=== PATIENT | female | born 1980 | race Caucasian/White ===

== ENCOUNTER 2020-03-29 16:02 | Observation (INO) | payer OTHER ==
[~2020-03-29] VITALS: Ht 160 cm; Wt 77.9 kg
--- OUTSIDE RECORDS SUMMARY | ~2020-03-29 | XMS | Encounter Summary ---
Demographics + + + | Address | [address] [place] [address] Rd | | | [place] [address] | + + + | Home Phone | | + + + | Preferred Language | Unknown | + + + | Marital Status | Unknown | + + + | Nondenominational Affiliation | Unknown | + + + | Race | Unknown | + + + | Ethnic Group | Unknown | + + + Author + + + | Author | [facility] | | | and [place] | + + + | Organization | [facility] | | | and [place] | + + + | Address | Unknown | + + + | Phone | Unavailable | + + + Support + + + + + | Name | Relationship | Address | Phone | + + + + + | Arthur Rosenberg | ECON | [address] | | | | | [place] | | | | | [address] | | + + + + + | Tiffanie Alexandra | ECON | Unknown | | + + + + + | Lulu Poole | ECON | Unknown | | + + + + + Care Team Providers + +------+ + | Care High School Social Studies Teacher Name | Role | Phone | + +------+ + | Shantal Fairchild NP | PCP | | + +------+ + Reason for Visit +--------+ + | Reason | Comments | +--------+ + | Other | Hep C | +--------+ + Evaluate & Treat (Routine) +--------+--------+ + + + + | Status | Reason | Specialty | Diagnoses / | Referred By | Referred To | | | | | Procedures | Contact | Contact | +--------+--------+ + + + + | Closed | | Gastroenterol | Diagnoses | Gurinder, | Krysta, | | | | ogy | Chronic | Shantal Dunne, | Marychuy, | | | | | hepatitis C | 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 [address] | | | | | without | [address] | [address] | | | | | mention of | [address] | [address] | | | | | hepatic coma | JARAD, | [place], | | | | | Procedures | [place] [address] | [place] [address] | | | | | Office | Phone: | Phone: | | | | | Visit | [phone] | [phone] | | | | | | Fax: | Fax: | | | | | | [phone] | [phone] | +--------+--------+ + + + + Encounter Details +--------+---------+ + + + | Date | Type | Department | Care Team | Description | +--------+---------+ + + + | 12/30/ | Office | [facility] | [facility], | Hepatitis C antibody | | 2014 | Visit | GASTROENTEROLOGY | JENNIFER Perrin [address] | test positive | | | | [address] | [address] | (Primary Dx) | | | | [address] [place], [place] | [place], [place] | | | | | [address] | [address] | | | | | [phone] | | | +--------+---------+ + + + Social History + +-------+ [...] + + documented as of this encounter Last Filed Vital Signs + + + [...] + + + documented in this encounter Progress Notes Marychuy Chaparro ARNP - 12/30/2014 11:04 AM PDTFormatting of this note might be differe nt from the original. Bethanie Rosenberg is a 34 y.o. female referred by Shantal Fairchild for evaluation and tr eatment of HCV antibody positive History of present illness: Patient states she has a history IV drug use, home tattoos, or incarceration. Has not done any illegal drug use for over 10 years. Complains of headaches and body aches intermittently. Denies ascites, jaundice, hematemesis, peripheral edema, sleep changes, or confusion. No Known Allergies Past Medical History Diagnosis Date Obesity Tobacco abuse Past Surgical History Procedure Laterality Date Cyst removal Family History Problem Relation Age of Onset Hepatitis C Mother treated, cleared of hep c History Social History Marital Status: Unknown Spouse Name: N/A Number of Children: N/A Years of Education: N/A Occupational History Not on file. Social History Main Topics Smoking status: Current Every Day Smoker Smokeless tobacco: Never Used Alcohol Use: Yes Drug Use: No Comment: quit in 2004 Sexual Activity: Not on file Other Topics Concern Not on file Social History Narrative Review of systems: Constitutional:Denies any fevers, chills, or unintentional weight loss. Eyes:Denies using glaucoma eye drops. Denies dry, burning, painful eyes Respiratory:Denies shortness of breath, cough or wheezing. Gastrointestinal: Complains of intermittent diarrhea and heartburn. Denies constipation, b loody or black stools, hematemesis, nausea or vomiting, hemorrhoids, abdominal pain, or dysp hagia. Skin: Denies rashes Neurological: Complains of muscle weakness and frequent bothersome headaches. Denies memor y difficulties, numbness or tingling, paralysis, or seizures. ENT:Denies hearing loss, hearing aids, hearing ringing or buzzing in ears, constantly runny nose, nasal obstruction, hayfever, dentures, or hoarseness. Cardiovascular:Denies chest pain, palpitations, or swelling to legs : Complains of painful urination, nocturnal urination, and bloody urine. Denies urine in continence or impotence. Musculoskeletal: Complains of painful back and joints. Denies swollen joints. Psychiatric:Denies depression and anxiety Endocrine:Denies enlarged thyroid Heme/lymph: Denies anemia or enlarged lymph glands. Physical exam: General: Alert and oriented, NAD Eyes: Sclera clear Mouth: Mucous membranes moist Abdomen: Soft, non-tender, non-distended, bowel tones positive x 4 quadrants, negative Murp hy's sign, negative rebound tenderness, no hepatosplenomegaly. Extremities: No clubbing or edema Skin: Warm, dry, intact. No rashes noted Neuro: Cranial nerves 2-12 grossly intact. Psych: Appropriate mood and affect. Abstract on 12/29/2014 Component Date Value Ref Range Status Signal/Cutoff 11/09/2014 20.9 Final HCV RNA, Qual PCR 11/09/2014 Not Detected Final HCV Ab 11/09/2014 Positive Final HCV Ab 10/15/2014 Positive Final Signal/Cutoff 10/15/2014 21.4 Final ANION GAP 10/13/2014 10 Final BUN/Creatinine Ratio 10/13/2014 15.9 Final Globulin 10/13/2014 5.0 Final Albumin/Globulin Ratio 10/13/2014 2.5 Final MYOGLOBIN 10/13/2014 38 169 ng/mL Final CKMB, Total, External 10/13/2014 Negative Final Interp Relative Index 10/13/2014 1.5 Final MCH 10/13/2014 26.0* 27.0 - 33.0 pg Final MCHC 10/13/2014 31.0 Final BASOPHILS % 10/13/2014 0.6 Final Creatinine, External 10/13/2014 0.82 0.6 - 1.35 Final eGFR, External 10/13/2014 >60 60 - 38160 Final WBC, External 10/13/2014 9.0 4.5 - 11 Final HGB, External 10/13/2014 13.2 12 - 16 Final HCT, External 10/13/2014 42.1 35 - 45 Final PLT, External 10/13/2014 261 140 - 440 Final Neutrophils %, External 10/13/2014 54.9 39 - 80 Final Lymphocytes %, External 10/13/2014 38.1 24 - 44 Final Monocytes %, External 10/13/2014 5.1 0 - 12 Final Eosinophils %, External 10/13/2014 1.3 0 - 6 Final RBC, External 10/13/2014 5.08 3.8 - 5.1 Final MCV, External 10/13/2014 85 81 - 99 Final RDW, External 10/13/2014 11.8 10.5 - 15 Final UA Blood, External 10/13/2014 10* 0 Final UA Glucose, External 10/13/2014 Normal Final UA Ketones, External 10/13/2014 Negative Final UA Ph, External 10/13/2014 6 5 - 9 Final UA Proteins, External 10/13/2014 Negative Final UA RBC, External 10/13/2014 0 0 - 4 Final UA Specific [place], External 10/13/2014 1.001* 1.005 - 1.03 Final UA Leukocyte Esterase, External 10/13/2014 Negative Final Sodium, External 10/13/2014 136 132 - 143 Final Potassium, External 10/13/2014 3.6 3.6 - 5.1 Final Chloride, External 10/13/2014 103 95 - 112 Final Carbon Dioxide, External 10/13/2014 27 19 - 31 Final Calcium, External 10/13/2014 9.6 8.4 - 10.2 Final Protein, Total, External 10/13/2014 7.5 6 - 8 Final Albumin, External 10/13/2014 5.0 3.5 - 5 Final Bilirubin, Total, External 10/13/2014 0.3 0 - 1.2 Final ALP, External 10/13/2014 57 30 - 128 Final AST, External 10/13/2014 20 13 - 39 Final ALT, External 10/13/2014 32 7 - 52 Final Troponin T, External 10/13/2014 <0.010 0.01 Final CK, Total, External 10/13/2014 3.36* 0 - 2.88 Final Glucose, External 10/13/2014 87 70 - 100 Final BUN, External 10/13/2014 13 6 - 23 Final Assessment: 1. Hepatitis C antibody test positive Plan: Hepatitis C antibody positive: Approximately 25-30% of the individuals infected with hepati tis C can spontaneously cleared the virus on their own. It appears this is the case for Newton Rosenberg. Discussed that she does not have hepatitis C infection. There is evidenc e of exposure to hepatitis C that did not become a chronic infection. Vaccination: If it has not been done, recommend patient is vaccinated for both Hepatitis A and Hepatitis B. Transmission: Patient cannot transmit the hepatitis C virus. Substance use/abuse: She is to continue to avoid illicit drug use. She can become reinfect ed We will repeat hepatitis C quantitative evaluation in 1 year to ensure this eradication. Patient is to call with any question or concerns. Any fevers, chills, chest pain, SOB or o ther serious symptoms patient is to call the office or go to ER Cc: Shantal Fairchild This note was dictated using voice recognition software. Please contact me if there are an y questions regarding its content. documented in t his encounter Plan of Treatment Not on filedocumented as of this encounter Visit Diagnoses + + | Diagnosis | + + | Hepatitis C antibody test positive - Primary Other and unspecified nonspecific | | immunological findings | + + documented in this encounter
--- OUTSIDE RECORDS SUMMARY | ~2020-03-29 | XMS | Clinical Summary ---
Demographics + + + | Address | [address] [place] [address] Rd | | | [place] [address] | + + + | Home Phone | | + + + | Preferred Language | Unknown | + + + | Marital Status | Unknown | + + + | Caodaism Affiliation | Unknown | + + + | Race | Unknown | + + + | Ethnic Group | Unknown | + + + Author + + + | Author | [facility] | | | and [place] | + + + | Organization | [facility] | | | and [place] | + + + | Address | Unknown | + + + | Phone | Unavailable | + + + Support + + + + + | Name | Relationship | Address | Phone | + + + + + | Arthur Rosenberg | ECON | [address] | | | | | [place] | | | | | [address] | | + + + + + | Tiffanie Alexandra | ECON | Unknown | | + + + + + | Lulu Poole | ECON | Unknown | | + + + + + Care Team Providers + +------+ + | Care Fruit Harvester Machine Operator Name | Role | Phone | + [...] | [employer] | MODA | [id number] | 12/09/19 | [phone] | | Medica | | MEDICAID HMO [...] Person | Self | [birth year] | | [address] | | | al/Fam | | 1980 | [phone] | [place] [address] | | | lakeisha | | | 8 (Home) | | + +--------+ +--------+ + + Advance Directives + + + + + | Type | Date Recorded | Patient | Explanation | | | | Energy Consultant | | + + + + + | Power of | | | | | Trailer Technician | | | | + + + + + | Advance | | | | | Directive | | | | + + + + +
--- OUTSIDE RECORDS SUMMARY | ~2020-03-29 | XMS | Encounter Summary ---
Demographics + + + | Address | [address] [place] [address] Rd | | | [place] [address] | + + + | Home Phone | | + + + | Preferred Language | Unknown | + + + | Marital Status | Unknown | + + + | Uatsdin Affiliation | Unknown | + + + | Race | Unknown | + + + | Ethnic Group | Unknown | + + + Author + + + | Author | [facility] | | | and [place] | + + + | Organization | [facility] | | | and [place] | + + + | Address | Unknown | + + + | Phone | Unavailable | + + + Support + + + + + | Name | Relationship | Address | Phone | + + + + + | Arthur Rosenberg | ECON | [address] | | | | | [place] | | | | | [address] | | + + + + + | Tiffanie Alexandra | ECON | Unknown | | + + + + + | Lulu Poole | ECON | Unknown | | + + + + + Care Team Providers + +------+ + | Care Steward/Stewardess Bath Name | Role | Phone | + +------+ + | Shantal Fairchild NP | PCP | | + +------+ + Encounter Details +--------+ + + + + | Date | Type | Department | Care Team | Description | +--------+ + + + + | 12/29/ | Abstract | [facility] [place] | [facility], | | | 2014 | | GASTROENTEROLOGY | [address] | | | | | [address] | [address] | | | | | [address] [place], [place] | [place], [place] | | | | | [address] | [address] | | | | | [phone] | | | +--------+ + + + [...] this encounter Results Hepatitis A, B, C Panel, Reflex (11/09/2014 4:38 PM PDT) + + + [...] | + +---------+ + + External Lab: Ck, Total (10/13/2014 5:00 PM PST) + + [...] - 1.03 | EXTERNAL | | | [place], | | | LAB | | | [...] MYOGLOBIN | 38 | 169 ng/mL | [facility] | | | | | [...] + | [facility] | [address] | [place], [place] | | | [facility] | | [address] | | | - LABORATORY [...] | ine Ratio | | | [facility] | | | | | | [...] + | [facility]. | [address] | [place] | | | [facility] | | [address] | | | - LABORATORY | | | | + + + + + documented in this encounter Visit Diagnoses Not on filedocumented in this encounter"
--- OUTSIDE RECORDS SUMMARY | ~2020-03-29 | XMS | Encounter Summary ---
Demographics + + + | Address | [address] [place] [address] Rd | | | [place] [address] | + + + | Home Phone | | + + + | Preferred Language | Unknown | + + + | Marital Status | Unknown | + + + | Latter-Day Affiliation | Unknown | + + + | Race | Unknown | + + + | Ethnic Group | Unknown | + + + Author + + + | Author | [facility] | | | and [place] | + + + | Organization | [facility] | | | and [place] | + + + | Address | Unknown | + + + | Phone | Unavailable | + + + Support + + + + + | Name | Relationship | Address | Phone | + + + + + | Arthur Rosenberg | ECON | [address] | | | | | [place] | | | | | [address] | | + + + + + | Tiffanie Alexandra | ECON | Unknown | | + + + + + | Lulu Poole | ECON | Unknown | | + + + + + Care Team Providers + +------+ + | Care Client Relations Specialist Name | Role | Phone | + [...] | | | | hepatitis C | MECHANICAL SYSTEMS ENGINEER [address] | JEWEL CORNER BRUSHING MACHINE OPERATOR [address] | | | | | without | [address] | [address] | | | | | mention of | [address] | [address] | | | | | hepatic coma | JARAD, | [place], | | | | | Procedures | [place] [address] | [place] [address] | | | | | Office | Phone: | Phone: | | | | | Visit | [phone] | [phone] | | | | | | Fax: | Fax: | | | | | | [phone] | [phone] | +--------+--------+ + + + + Encounter Details +--------+---------+ + + + | Date | Type | Department | Care Team | Description | +--------+---------+ + + + | 12/30/ | Office | [facility] | [facility], | Hepatitis C antibody | | 2014 | Visit | GASTROENTEROLOGY | [address] | test positive | | | | [address] | [address] | (Primary Dx) | | | | [address] [place], [place] | [place], [place] | | | | | [address] | [address] | | | | | [phone] | | | +--------+---------+ + + + [...] Final eGFR, External 10/13/2014 >60 60 - [address] Final WBC, External 10/13/2014 9.0 4.5 - [...] 0 0 - 4 Final UA Specific [place], External 10/13/2014 1.001* 1.005 - 1.03 Final [...]
--- OUTSIDE RECORDS SUMMARY | ~2020-03-29 | XMS | Clinical Summary ---
Demographics + + + | Address | [address] [place] [address] Rd | | | [place] [address] | + + + | Home Phone | | + + + | Preferred Language | Unknown | + + + | Marital Status | Unknown | + + + | Spiritism Affiliation | Unknown | + + + | Race | Unknown | + + + | Ethnic Group | Unknown | + + + Author + + + | Author | [facility] | | | and [place] | + + + | Organization | [facility] | | | and [place] | + + + | Address | Unknown | + + + | Phone | Unavailable | + + + Support + + + + + | Name | Relationship | Address | Phone | + + + + + | Arthur Rosenberg | ECON | [address] | | | | | [place] | | | | | [address] | | + + + + + | Tiffanie Alexandra | ECON | Unknown | | + + + + + | Lulu Poole | ECON | Unknown | | + + + + + Care Team Providers + +------+ + | Care Fowl Blood Tester Name | Role | Phone | + [...] | [employer] | MODA | [id number] | 12/09/19 | [phone] | | Medica | | MEDICAID HMO [...] Person | Self | [birth year] | | [address] | | | al/Fam | | 1980 | [phone] | [place] [address] | | | lakeisha | | | 8 (Home) | | + +--------+ +--------+ + + Advance Directives + + + + + | Type | Date Recorded | Patient | Explanation | | | | Junior Staff Accountant | | + + + + + | Power of | | | | | Rolls Baker | | | | + + + + + | Advance | | | | | Directive | | | | + + + + +
--- OUTSIDE RECORDS SUMMARY | ~2020-03-29 | XMS | Encounter Summary ---
Demographics + + + | Address | [address] [place] [address] Rd | | | [place] [address] | + + + | Home Phone | | + + + | Preferred Language | Unknown | + + + | Marital Status | Unknown | + + + | Jewish Affiliation | Unknown | + + + | Race | Unknown | + + + | Ethnic Group | Unknown | + + + Author + + + | Author | [facility] | | | and [place] | + + + | Organization | [facility] | | | and [place] | + + + | Address | Unknown | + + + | Phone | Unavailable | + + + Support + + + + + | Name | Relationship | Address | Phone | + + + + + | Arthur Rosenberg | ECON | [address] | | | | | [place] | | | | | [address] | | + + + + + | Tiffanie Alexandra | ECON | Unknown | | + + + + + | Lulu Poole | ECON | Unknown | | + + + + + Care Team Providers + +------+ + | Care Domestic Cleaner Name | Role | Phone | + +------+ + | Shantal Fairchild NP | PCP | | + +------+ + Encounter Details +--------+ + + + + | Date | Type | Department | Care Team | Description | +--------+ + + + + | 12/29/ | Abstract | [facility] [place] | [facility], | | | 2014 | | GASTROENTEROLOGY | [address] | | | | | [address] | [address] | | | | | [address] [place], [place] | [place], [place] | | | | | [address] | [address] | | | | | [phone] | | | +--------+ + + + [...] - 1.03 | EXTERNAL | | | [place], | | | LAB | | | [...] + | [facility] | [address] | [place], [place] | | | [facility] | | [id number] | | | - LABORATORY | [...] [address] | [place] | | | [facility] | | [id number] | | | - LABORATORY | | | | + + + + + documented in this encounter Visit Diagnoses Not on filedocumented in this encounter"
[~2020-03-29 16:02] MED LIST: MIDOL CAPLET1 EAC1 PO; NORCO 5-325 TA1 EACH PO; TRAZODONE HCL100 MG PO
--- NOTE | 2020-04-01 21:09 | EKG ---
[facility] [address] [facility] [place], [place] [address] Signed Sinus tachycardia Cannot rule out Inferior infarct , age undetermined Abnormal ECG No previous ECGs available Confirmed by MAURIZIO RYDER DO ([id number]) on 04/01/2020 9:09:27 PM Electronically Signed By: MAURIZIO RYDER DO 04/01/20 2109 PATIENT NAME: LARISSA ENGLAND ELISA Electrocardiogram DATE OF : 84 PHYSICIAN: MAURIZIO RYDER DO REPORT #: [id number] REPORT IS CONFIDENTIAL AND NOT TO BE RELEASED WITHOUT AUTHORIZATION
== END 2020-03-30 06:25 | disposition left against medical advice (07) ==
LOC: ED 16:02 → CCU 16:03
PROVIDERS: ADMIT Internal Medicine
DX: F15.10 Other stimulant abuse, uncomplicated (principal); G92 Toxic encephalopathy; M62.82 Rhabdomyolysis; E87.2 Acidosis; R74.0 Nonspecific elevation of levels of transaminase and lactic acid dehydrogenase [LDH]
CPT/HCPCS: 36415; 51702; 70450; 80053; 80176; 81001; 82550; 83735; 84443; 84703; 85025; 93005; 93010; 96361; 96372; 99285-25; C9803; G0378; G0480; J1200; J1650; J1790; J2060; J7030; J7121; U0002

== ENCOUNTER 2020-04-18 18:11 | Emergency (ER) | payer SELFPAY ==
[~2020-04-18] VITALS: Ht 160 cm; Wt 77.6 kg
--- OUTSIDE RECORDS SUMMARY | 2020-04-18 18:14 | XMS ---
PreManage Notification: LARISSA ENGLAND Security Director Of Architecture Events No recent Security Events currently on file CRITERIA MET - [facility] - 2 Visits in 30 Days CARE PROVIDERS There are no care providers on record at this time. Kristine has no Care Guidelines for this patient. Kathia VISIT COUNT (12 MO.) 2 [facility] T[facility] 2 NOTE: Visits indicate total known visits. ED/C VISIT TRACKING (12 MO.) [facility]18[facility]2020 [facility] [place] [facility] COMPLAINT: - MED CLEARANCE 03/29/2020 16:02 [facility] [place] TYPE: Emergency COMPLAINT: - ALTERED LOC INPATIENT VISIT TRACKING (12 MO.) 03/29/2020 16:03 [facility] [place] TYPE: Observation COMPLAINT: - TOXIC ENCEPHALOPATHY DIAGNOSES: - Rhabdomyolysis - Other stimulant abuse, uncomplicated - Altered mental status, unspecified - Nonspecific elevation of levels of transaminase and lactic ac - Toxic encephalopathy - Acidosis [email or web address]
== END 2020-04-18 19:14 | disposition home or self-care (01) ==
LOC: ED 18:11
DX: F15.10 Other stimulant abuse, uncomplicated (principal); F17.200 Nicotine dependence, unspecified, uncomplicated
CPT/HCPCS: 99283

== ENCOUNTER 2020-06-06 16:19 | Emergency (ER) | payer SELFPAY ==
[~2020-06-06] VITALS: Ht 160 cm; Wt 77.6 kg
--- OUTSIDE RECORDS SUMMARY | ~2020-06-06 | XMS | Clinical Summary ---
Demographics + + + | Address | [address] [place] [address] Rd | | | [place] [address] | + + + | Home Phone | | + + + | Preferred Language | Unknown | + + + | Marital Status | Unknown | + + + | Taoist Affiliation | Unknown | + + + | Race | White | + + + | Ethnic Group | Not or | + + + Author + + + | Author | [facility] | | | and [place] | + + + | Organization | [facility] | | | and [place] | + + + | Address | Unknown | + + + | Phone | Unavailable | + + + Support + + + + + | Name | Relationship | Address | Phone | + + + + + | Arthur Rosenberg | ECON | [address] | | | | | [place] | | | | | [address] | | + + + + + | Tiffanie Alexandra | ECON | Unknown | | + + + + + | Lulu Poole | ECON | Unknown | | + + + + + Care Team Providers + +------+ + | Care Insulation Inspector Name | Role | Phone | + [...] | [employer] | MODA | [id number] | 12/09/19 | [phone] | | Medica | | MEDICAID HMO [...] Person | Self | [birth year] | | [address] | | | al/Fam | | 1980 | [phone] | [place] [address] | | | lakeisha | | | 8 (Home) | | + +--------+ +--------+ + + Advance Directives + + + + + | Type | Date Recorded | Patient | Explanation | | | | Commercial Plumber | | + + + + + | Power of | | | | | Packing Floor Worker | | | | + + + + + | Advance | | | | | Directive | | | | + + + + +
--- OUTSIDE RECORDS SUMMARY | ~2020-06-06 | XMS | Encounter Summary ---
Demographics + + + | Address | [address] [place] [address] Rd | | | [place] [address] | + + + | Home Phone | | + + + | Preferred Language | Unknown | + + + | Marital Status | Unknown | + + + | Mormon Affiliation | Unknown | + + + | Race | White | + + + | Ethnic Group | Not or | + + + Author + + + | Author | [facility] | | | and [place] | + + + | Organization | [facility] | | | and [place] | + + + | Address | Unknown | + + + | Phone | Unavailable | + + + Support + + + + + | Name | Relationship | Address | Phone | + + + + + | Arthur Rosenberg | ECON | [address] | | | | | [place] | | | | | [address] | | + + + + + | Tiffanie Alexandra | ECON | Unknown | | + + + + + | Lulu Poole | ECON | Unknown | | + + + + + Care Team Providers + +------+ + | Care Occupational Therapy Assistant Name | Role | Phone | + [...] | | | | hepatitis C | ROLLER PRINTER [address] | ALIGNER BARREL AND RECEIVER [address] | | | | | without | | [address] | | | | | mention of | [address] | [address] | | | | | hepatic coma | JARAD, | [place], | | | | | Procedures | [place] [address] | [place] [address] | | | | | Office | Phone: | Phone: | | | | | Visit | [phone] | [phone] | | | | | | Fax: | Fax: | | | | | | [phone] | [phone] | +--------+--------+ + + + + Encounter Details +--------+---------+ + + + | Date | Type | Department | Care Team | Description | +--------+---------+ + + + | 12/30/ | Office | [facility] | [facility] | Hepatitis C antibody | | 2015 | Visit | GASTROENTEROLOGY | [address]ENNIF[address]errin [address] | test positive | | | | [address] [place] | [address] | (Primary Dx) | | | | [address] [place] | [place] | | | | | [address] | [id number] | | | | | [phone] | | | +--------+---------+ + + + [...] Final eGFR, External 10/13/2014 >60 60 - [address] Final WBC, External 10/13/2014 9.0 4.5 - [...] 0 0 - 4 Final UA Specific [place], External 10/13/2014 1.001* 1.005 - 1.03 Final [...]
--- OUTSIDE RECORDS SUMMARY | ~2020-06-06 | XMS | Encounter Summary ---
Demographics + + + | Address | [address] [place] [address] Rd | | | [place] [address] | + + + | Home Phone | | + + + | Preferred Language | Unknown | + + + | Marital Status | Unknown | + + + | Oriental Orthodox Affiliation | Unknown | + + + | Race | White | + + + | Ethnic Group | Not or | + + + Author + + + | Author | [facility] | | | and [place] | + + + | Organization | [facility] | | | and [place] | + + + | Address | Unknown | + + + | Phone | Unavailable | + + + Support + + + + + | Name | Relationship | Address | Phone | + + + + + | Arthur Rosenberg | ECON | [address] | | | | | [place] | | | | | [address] | | + + + + + | Tiffanie Ibrahima | ECON | Unknown | | + + + + + | Lulu Poole | ECON | Unknown | | + + + + + Care Team Providers + +------+ + | Care Trolley Car Mechanic Name | Role | Phone | + +------+ + | Shantal Fairchild NP | PCP | | + +------+ + Encounter Details +--------+ + + + + | Date | Type | Department | Care Team | Description | +--------+ + + + + | 12/29/ | Abstract | [facility] | [facility], | | | 2014 | | GASTROENTEROLOGY | JENNIFER Perrin [address] | | | | | [address] [place] | [address] | | | | | [address] | [place] | | | | | [phone] | [id number] | | | | | [phone] | | | +--------+ + + + [...] - 1.03 | EXTERNAL | | | [place], | | | LAB | | | [...] + | [facility] | [address] | [place] | | | [facility] | | [address], [facility] | | | - LABORATORY | [...] [facility]. | [address] | [place], [place] | | | [facility] | | [address] | | | - LABORATORY | | | | + + + + + documented in this encounter Visit Diagnoses Not on filedocumented in this encounter"
[2020-06-06] MEDS ORDERED: ESCITALOPRAM OX10 MG PO (16:33)
[2020-06-06] MEDS ORDERED: HYDROXYZINE HCL25 MG PO (16:33)
--- NOTE | 2020-06-06 21:18 | EKG ---
[facility] [address] [facility] [place], [place] [address] Signed Sinus tachycardia Cannot rule out Inferior infarct (cited on or before 29-MAR-2020) Abnormal ECG When compared with ECG of 29-MAR-2020 16:22, No significant change was found Confirmed by ELIZABETH HAHN MD ([id number]) on 06/06/2020 9:17:56 PM Electronically Signed By: ELIZABETH HAHN MD 06/06/20 2118 PATIENT NAME: SAMANTALARISSAASTON PÉREZ Electrocardiogram DATE OF : 84 PHYSICIAN: ELIZABETH HAHN MD REPORT #: [id number] REPORT IS CONFIDENTIAL AND NOT TO BE RELEASED WITHOUT AUTHORIZATION
--- NOTE | 2020-06-07 13:14 | EKG ---
[facility] [address] [place] [address] Signed Normal sinus rhythm with sinus arrhythmia Prolonged QT Abnormal ECG When compared with ECG of 06-JUN-2020 16:35, Vent. rate has decreased BY 58 BPM Confirmed by ELIZABETH HAHN MD ([id number]) on 06/07/2020 1:14:08 PM Electronically Signed By: ELIZABETH HAHN MD 06/07/20 1314 PATIENT NAME: LARISSA ENGLAND Electrocardiogram DATE OF : 84 PHYSICIAN: ELIZABETH HAHN MD REPORT #: [id number] REPORT IS CONFIDENTIAL AND NOT TO BE RELEASED WITHOUT AUTHORIZATION
== END 2020-06-07 10:16 | disposition home or self-care (01) ==
LOC: ED 16:19
DX: T43.222A Poisoning by selective serotonin reuptake inhibitors, intentional self-harm, initial encounter (principal); T43.592A Poisoning by other antipsychotics and neuroleptics, intentional self-harm, initial encounter; F15.90 Other stimulant use, unspecified, uncomplicated; F17.200 Nicotine dependence, unspecified, uncomplicated; Z79.899 Other long term (current) drug therapy
CPT/HCPCS: 80053; 80176; 81001; 84443; 84703; 85025; 93005; 93010; 99285-25; G0480

== ENCOUNTER 2020-06-08 10:26 | Emergency (ER) | payer SELFPAY ==
[~2020-06-08] VITALS: Ht 160 cm; Wt 77.6 kg
--- OUTSIDE RECORDS SUMMARY | ~2020-06-08 | XMS | Clinical Summary ---
Demographics + + + | Address | [address] [place] [address] Rd | | | [place] [address] | + + + | Home Phone | | + + + | Preferred Language | Unknown | + + + | Marital Status | Unknown | + + + | Anabaptism Affiliation | Unknown | + + + | Race | White | + + + | Ethnic Group | Not or | + + + Author + + + | Author | [facility] | | | and [place] | + + + | Organization | [facility] | | | and [place] | + + + | Address | Unknown | + + + | Phone | Unavailable | + + + Support + + + + + | Name | Relationship | Address | Phone | + + + + + | Arthur Rosenberg | ECON | [address] | | | | | [place] | | | | | [address] | | + + + + + | Tiffanie Alexandra | ECON | Unknown | | + + + + + | Lulu Poole | ECON | Unknown | | + + + + + Care Team Providers + +------+ + | Care Home Health Administrator Name | Role | Phone | + +------+ + | Shantal Fairchild NP | PCP | | + +------+ + Allergies No Known Allergies Medications + + + +---------+------+------+-------+ | Medication | Sig | Dispensed | Refills | Star | End | Statu | | | | | | t | Date | s | | | | | | Date | | | + + + +---------+------+------+-------+ | | Take 1 tablet by | | 0 | | | Activ | | HYDROcodone-acetamin | mouth every 4 hours | | | | | e | | ophen (NORCO) 5-325 | as needed for Pain. | | | | | | | mg per tablet | | | | | | | + + + +---------+------+------+-------+ Active Problems No known active problems Family History + + +------+ + | Medical History | Relation | Name | Comments | + + +------+ + | Hepatitis C | Mother | | treated, cleared of hep c | + + +------+ + + +------+ + + | Relation | Name | Status | Comments | + +------+ + + | Father | | | MVA | | | | (Age | | | | | 32) | | + +------+ + + | Mother | | Alive | | + +------+ + + Social History + +-------+ +--------+------+ | Tobacco Use | Types | Packs/Day | Years | Date | | | | | Used | | + +-------+ +--------+------+ | Current Every Day | | | | | | Smoker | | | | | + +-------+ +--------+------+ + +---+---+---+ | Smokeless Tobacco: | | | | | Never Used | | | | + +---+---+---+ + + | Tobacco Cessation: Ready to Quit: No; Counseling Given: Yes | + + + + +---------+ + | Alcohol Use | Drinks/Week | oz/Week | Comments | + + +---------+ + | Yes | | | | + + +---------+ + + + + | Sex Assigned at | Date Recorded | | | | + + + | Not on file | | + + + Last Filed Vital Signs + + + + + | Vital Sign | Reading | Time Taken | Comments | + + + + + | Blood Pressure | 116/80 | 12/30/2014 10:49 AM | | | | | PDT | | + + + + + | Pulse | 84 | 12/30/2014 10:49 AM | | | | | PDT | | + + + + + | Temperature | 36.4 C (97.6 F) | 12/30/2014 10:49 AM | | | | | PDT | | + + + + + | Respiratory Rate | 16 | 12/30/2014 10:49 AM | | | | | PDT | | + + + + + | Oxygen Saturation | - | - | | + + + + + | Inhaled Oxygen | - | - | | | Concentration | | | | + + + + + | Weight | 83.9 kg (185 lb) | 12/30/2014 10:49 AM | | | | | PDT | | + + + + + | Height | 162.6 cm (5' 4") | 12/30/2014 10:49 AM | | | | | PDT | | + + + + + | Body Mass Index | 31.76 | 12/30/2014 10:49 AM | | | | | PDT | | + + + + + Plan of Treatment + + +-------+ + | Health Maintenance | Due Date | Last | Comments | | | | Done | | + + +-------+ + | Vaccine: | | | | | Dtap/Tdap/Td (1 - | 1 | | | | Tdap) | | | | + + +-------+ + | Cervical Cancer | | | | | Screening (Pap) | 2 | | | + + +-------+ + | Vaccine: Influenza | | | | | (#1) | 0 | | | + + +-------+ + Results Not on filefrom Last 3 Months Insurance + +--------+ +--------+ +---------+--------+ | Payer | Benefi | Subscriber | Effect | Phone | Address | Type | | | t Plan | ID | elle | | | | | | / | | Dates | | | | | | Group | | | | | | + +--------+ +--------+ +---------+--------+ | [employer] | [employer] | [id number] | 12/09/19 | [phone] | | Medica | | MEDICAID HMO | HEALTH | | 15-Pre | 1 | | id | | | MDCD | | sent | | | | | | [place]MO [place] | | | | | | + +--------+ +--------+ +---------+--------+ + +--------+ +--------+ + + | Guarantor Name | Accoun | Relation to | Date | Phone | Billing Address | | | t Type | Patient | of | | | | | | | | | | + +--------+ +--------+ + + | Bethanie Rosenberg | Person | Self | [birth year] | [address] | | | al/Fam | | 1980 | [phone] | [place] [address] | | | [place] | | | [address] (Home) | | + +--------+ +--------+ + + Advance Directives + + + + + | Type | Date Recorded | Patient | Explanation | | | | Solution Specialist | | + + + + + | Power of | | | | | Biofuels Processing Technician | | | | + + + + + | Advance | | | | | Directive | | | | + + + + +
--- OUTSIDE RECORDS SUMMARY | ~2020-06-08 | XMS | Encounter Summary ---
Demographics + + + | Address | [address] [place] [address] Rd | | | [place] [address] | + + + | Home Phone | | + + + | Preferred Language | Unknown | + + + | Marital Status | Unknown | + + + | Worship Affiliation | Unknown | + + + | Race | White | + + + | Ethnic Group | Not or | + + + Author + + + | Author | [facility] | | | and [place] | + + + | Organization | [facility] | | | and [place] | + + + | Address | Unknown | + + + | Phone | Unavailable | + + + Support + + + + + | Name | Relationship | Address | Phone | + + + + + | Arthur Rosenberg | ECON | [address] | | | | | [place] | | | | | [address] | | + + + + + | Tiffanie Ibrahima | ECON | Unknown | | + + + + + | Lulu Poole | ECON | Unknown | | + + + + + Care Team Providers + +------+ + | Care Vocational Rehabilitation Teacher Name | Role | Phone | + +------+ + | Shantal Fairchild NP | PCP | | + +------+ + Encounter Details +--------+ + + + + | Date | Type | Department | Care Team | Description | +--------+ + + + + | 12/29/ | Abstract | [facility] | [facility], | | | 2014 | | GASTROENTEROLOGY | JENN[address]errin [address] | | | | | [address] [place] | [address] | | | | | [address] | [place] | | | | | [phone] | [id number] | | | | | [phone] | | | +--------+ + + + + Social History + +-------+ +--------+------+ | Tobacco Use | Types | Packs/Day | Years | Date | | | | | Used | | + +-------+ +--------+------+ | Current Every Day | | | | | | Smoker | | | | | + +-------+ +--------+------+ + + +---------+ + | Alcohol Use | Drinks/Week | oz/Week | Comments | + + +---------+ + | Not Asked | | | | + + +---------+ + + + + | Sex Assigned at | Date Recorded | | | | + + + | Not on file | | + + + documented as of this encounter Plan of Treatment Not on filedocumented as of this encounter Procedures + +--------+ + + + | Procedure Name | Priori | Date/Time | Associated Diagnosis | Comments | | | ty | | | | + +--------+ + + + | HEPATITIS A, B, C | Routin | 11/09/2014 | | Results for this | | PANEL, REFLEX | e | 4:38 PM | | procedure are in the | | | | PDT | | results section. | + +--------+ + + + | HEPATITIS A, B, C | Routin | 10/15/2014 | | Results for this | | PANEL, REFLEX | e | 4:40 PM | | procedure are in the | | | | PST | | results section. | + +--------+ + + + | EXTERNAL LAB: BUN | Routin | 10/13/2014 | | Results for this | | | e | 5:00 PM | | procedure are in the | | | | PST | | results section. | + +--------+ + + + | EXTERNAL LAB: | Routin | 10/13/2014 | | Results for this | | GLUCOSE | e | 5:00 PM | | procedure are in the | | | | PST | | results section. | + +--------+ + + + | EXTERNAL LAB: SANTY, | Routin | 10/13/2014 | | Results for this | | TOTAL | e | 5:00 PM | | procedure are in the | | | | PST | | results section. | + +--------+ + + + | EXTERNAL LAB: | Routin | 10/13/2014 | | Results for this | | TROPONIN T | e | 5:00 PM | | procedure are in the | | | | PST | | results section. | + +--------+ + + + | EXTERNAL LAB: ALT | Routin | 10/13/2014 | | Results for this | | | e | 5:00 PM | | procedure are in the | | | | PST | | results section. | + +--------+ + + + | EXTERNAL LAB: AST | Routin | 10/13/2014 | | Results for this | | | e | 5:00 PM | | procedure are in the | | | | PST | | results section. | + +--------+ + + + | EXTERNAL LAB: | Routin | 10/13/2014 | | Results for this | | ALKALINE PHOSPHATASE | e | 5:00 PM | | procedure are in the | | | | PST | | results section. | + +--------+ + + + | EXTERNAL LAB: | Routin | 10/13/2014 | | Results for this | | BILIRUBIN, TOTAL | e | 5:00 PM | | procedure are in the | | | | PST | | results section. | + +--------+ + + + | EXTERNAL LAB: | Routin | 10/13/2014 | | Results for this | | ALBUMIN | e | 5:00 PM | | procedure are in the | | | | PST | | results section. | + +--------+ + + + | EXTERNAL LAB: | Routin | 10/13/2014 | | Results for this | | PROTEIN, TOTAL | e | 5:00 PM | | procedure are in the | | | | PST | | results section. | + +--------+ + + + | EXTERNAL LAB: | Routin | 10/13/2014 | | Results for this | | CALCIUM | e | 5:00 PM | | procedure are in the | | | | PST | | results section. | + +--------+ + + + | EXTERNAL LAB: CARBON | Routin | 10/13/2014 | | Results for this | | DIOXIDE | e | 5:00 PM | | procedure are in the | | | | PST | | results section. | + +--------+ + + + | EXTERNAL LAB: | Routin | 10/13/2014 | | Results for this | | CHLORIDE | e | 5:00 PM | | procedure are in the | | | | PST | | results section. | + +--------+ + + + | EXTERNAL LAB: | Routin | 10/13/2014 | | Results for this | | POTASSIUM | e | 5:00 PM | | procedure are in the | | | | PST | | results section. | + +--------+ + + + | EXTERNAL LAB: SODIUM | Routin | 10/13/2014 | | Results for this | | | e | 5:00 PM | | procedure are in the | | | | PST | | results section. | + +--------+ + + + | EXTERNAL LAB: | Routin | 10/13/2014 | | Results for this | | URINALYSIS | e | 5:00 PM | | procedure are in the | | | | PST | | results section. | + +--------+ + + + | EXTERNAL LAB: CBC | Routin | 10/13/2014 | | Results for this | | | e | 5:00 PM | | procedure are in the | | | | PST | | results section. | + +--------+ + + + | EXTERNAL LAB: EGFR | Routin | 10/13/2014 | | Results for this | | | e | 5:00 PM | | procedure are in the | | | | PST | | results section. | + +--------+ + + + | EXTERNAL LAB: | Routin | 10/13/2014 | | Results for this | | CREATININE | e | 5:00 PM | | procedure are in the | | | | PST | | results section. | + +--------+ + + + | RULE OUT MYOCARDIAL | Routin | 10/13/2014 | | Results for this | | INFARCTION | e | 5:00 PM | | procedure are in the | | | | PST | | results section. | + +--------+ + + + | CBC WITH | Routin | 10/13/2014 | | Results for this | | DIFFERENTIAL | e | 5:00 PM | | procedure are in the | | | | PST | | results section. | + +--------+ + + + | COMPREHENSIVE | Routin | 10/13/2014 | | Results for this | | METABOLIC PANEL | e | 5:00 PM | | procedure are in the | | | | PST | | results section. | + +--------+ + + + documented in this encounter Results Hepatitis A, B, C PanelTito (11/09/2014 4:38 PM PDT) + + + + + + | Component | Value | Ref Range | Performed | Pathologist | | | | | At | Signature | + + + + + + | Signal/Cuto | 20.9 | | | | | ff | | | | | + + + + + + | HCV RNA, | Not Detected | | | | | Qual PCR | | | | | + + + + + + | HCV Ab | Positive | | | | + + + + + + + + | Specimen | + + | Blood specimen | | (specimen) | + + Hepatitis A, B, C Panel, Reflex (10/15/2014 4:40 PM PST) + + + + + + | Component | Value | Ref Range | Performed | Pathologist | | | | | At | Signature | + + + + + + | HCV Ab | Positive | | | | + + + + + + | Signal/Cuto | 21.4 | | | | | ff | | | | | + + + + + + + + | Specimen | + + | Blood specimen | | (specimen) | + + External Lab: KELSEY (10/13/2014 5:00 PM PST) + +-------+ + + + | Component | Value | Ref Range | Performed | Pathologist | | | | | At | Signature | + +-------+ + + + | BUN, | 13 | 6 - 23 | EXTERNAL | | | External | | | LAB | | + +-------+ + + + + + | Resulting Agency Comment | + + | [facility] | + + + +---------+ + + | Performing | Address | City/State/Zipcode | Phone Number | | Organization | | | | + +---------+ + + | EXTERNAL LAB | | | | + +---------+ + + External Lab: Glucose (10/13/2014 5:00 PM PST) + +-------+ + + + | Component | Value | Ref Range | Performed | Pathologist | | | | | At | Signature | + +-------+ + + + | Glucose, | 87 | 70 - 100 | EXTERNAL | | | External | | | LAB | | + +-------+ + + + + + | Resulting Agency Comment | + + | [facility] | + + + +---------+ + + | Performing | Address | City/State/Zipcode | Phone Number | | Organization | | | | + +---------+ + + | EXTERNAL LAB | | | | + +---------+ + + External Lab: Santy Total (10/13/2014 5:00 PM PST) + + + + + + | Component | Value | Ref Range | Performed | Pathologist | | | | | At | Signature | + + + + + + | CK, Total, | 3.36 (A) | 0 - 2.88 | EXTERNAL | | | External | | | LAB | | + + + + + + + + | Resulting Agency Comment | + + | [facility] | + + + +---------+ + + | Performing | Address | City/State/Zipcode | Phone Number | | Organization | | | | + +---------+ + + | EXTERNAL LAB | | | | + +---------+ + + External Lab: Troponin T (10/13/2014 5:00 PM PST) + +--------+ + + + | Component | Value | Ref Range | Performed | Pathologist | | | | | At | Signature | + +--------+ + + + | Troponin T, | <0.010 | 0.01 | EXTERNAL | | | External | | | LAB | | + +--------+ + + + + + | Resulting Agency Comment | + + | [facility] | + + + +---------+ + + | Performing | Address | City/State/Zipcode | Phone Number | | Organization | | | | + +---------+ + + | EXTERNAL LAB | | | | + +---------+ + + External Lab: ALT (10/13/2014 5:00 PM PST) + +-------+ + + + | Component | Value | Ref Range | Performed | Pathologist | | | | | At | Signature | + +-------+ + + + | ALT, | 32 | 7 - 52 | EXTERNAL | | | External | | | LAB | | + +-------+ + + + + + | Resulting Agency Comment | + + | [facility] | + + + +---------+ + + | Performing | Address | City/State/Zipcode | Phone Number | | Organization | | | | + +---------+ + + | EXTERNAL LAB | | | | + +---------+ + + External Lab: AST (10/13/2014 5:00 PM PST) + +-------+ + + + | Component | Value | Ref Range | Performed | Pathologist | | | | | At | Signature | + +-------+ + + + | AST, | 20 | 13 - 39 | EXTERNAL | | | External | | | LAB | | + +-------+ + + + + + | Resulting Agency Comment | + + | [facility] | + + + +---------+ + + | Performing | Address | City/State/Zipcode | Phone Number | | Organization | | | | + +---------+ + + | EXTERNAL LAB | | | | + +---------+ + + External Lab: Alkaline Phosphatase (10/13/2014 5:00 PM PST) + +-------+ + + + | Component | Value | Ref Range | Performed | Pathologist | | | | | At | Signature | + +-------+ + + + | ALP, | 57 | 30 - 128 | EXTERNAL | | | External | | | LAB | | + +-------+ + + + + + | Resulting Agency Comment | + + | [facility] | + + + +---------+ + + | Performing | Address | City/State/Zipcode | Phone Number | | Organization | | | | + +---------+ + + | EXTERNAL LAB | | | | + +---------+ + + External Lab: Bilirubin, Total (10/13/2014 5:00 PM PST) + +-------+ + + + | Component | Value | Ref Range | Performed | Pathologist | | | | | At | Signature | + +-------+ + + + | Bilirubin, | 0.3 | 0 - 1.2 | EXTERNAL | | | Total, | | | LAB | | | External | | | | | + +-------+ + + + + + | Resulting Agency Comment | + + | [facility] | + + + +---------+ + + | Performing | Address | City/State/Zipcode | Phone Number | | Organization | | | | + +---------+ + + | EXTERNAL LAB | | | | + +---------+ + + External Lab: Albumin (10/13/2014 5:00 PM PST) + +-------+ + + + | Component | Value | Ref Range | Performed | Pathologist | | | | | At | Signature | + +-------+ + + + | Albumin, | 5.0 | 3.5 - 5 | EXTERNAL | | | External | | | LAB | | + +-------+ + + + + + | Resulting Agency Comment | + + | [facility] | + + + +---------+ + + | Performing | Address | City/State/Zipcode | Phone Number | | Organization | | | | + +---------+ + + | EXTERNAL LAB | | | | + +---------+ + + External Lab: Protein, Total (10/13/2014 5:00 PM PST) + +-------+ + + + | Component | Value | Ref Range | Performed | Pathologist | | | | | At | Signature | + +-------+ + + + | Protein, | 7.5 | 6 - 8 | EXTERNAL | | | Total, | | | LAB | | | External | | | | | + +-------+ + + + + + | Resulting Agency Comment | + + | [facility] | + + + +---------+ + + | Performing | Address | City/State/Zipcode | Phone Number | | Organization | | | | + +---------+ + + | EXTERNAL LAB | | | | + +---------+ + + External Lab: Calcium (10/13/2014 5:00 PM PST) + +-------+ + + + | Component | Value | Ref Range | Performed | Pathologist | | | | | At | Signature | + +-------+ + + + | Calcium, | 9.6 | 8.4 - 10.2 | EXTERNAL | | | External | | | LAB | | + +-------+ + + + + + | Resulting Agency Comment | + + | [facility] | + + + +---------+ + + | Performing | Address | City/State/Zipcode | Phone Number | | Organization | | | | + +---------+ + + | EXTERNAL LAB | | | | + +---------+ + + External Lab: Carbon Dioxide (10/13/2014 5:00 PM PST) + +-------+ + + + | Component | Value | Ref Range | Performed | Pathologist | | | | | At | Signature | + +-------+ + + + | Carbon | 27 | 19 - 31 | EXTERNAL | | | Dioxide, | | | LAB | | | External | | | | | + +-------+ + + + + + | Resulting Agency Comment | + + | [facility] | + + + +---------+ + + | Performing | Address | City/State/Zipcode | Phone Number | | Organization | | | | + +---------+ + + | EXTERNAL LAB | | | | + +---------+ + + External Lab: Chloride (10/13/2014 5:00 PM PST) + +-------+ + + + | Component | Value | Ref Range | Performed | Pathologist | | | | | At | Signature | + +-------+ + + + | Chloride, | 103 | 95 - 112 | EXTERNAL | | | External | | | LAB | | + +-------+ + + + + + | Resulting Agency Comment | + + | [facility] | + + + +---------+ + + | Performing | Address | City/State/Zipcode | Phone Number | | Organization | | | | + +---------+ + + | EXTERNAL LAB | | | | + +---------+ + + External Lab: Potassium (10/13/2014 5:00 PM PST) + +-------+ + + + | Component | Value | Ref Range | Performed | Pathologist | | | | | At | Signature | + +-------+ + + + | Potassium, | 3.6 | 3.6 - 5.1 | EXTERNAL | | | External | | | LAB | | + +-------+ + + + + + | Resulting Agency Comment | + + | [facility] | + + + +---------+ + + | Performing | Address | City/State/Zipcode | Phone Number | | Organization | | | | + +---------+ + + | EXTERNAL LAB | | | | + +---------+ + + External Lab: Sodium (10/13/2014 5:00 PM PST) + +-------+ + + + | Component | Value | Ref Range | Performed | Pathologist | | | | | At | Signature | + +-------+ + + + | Sodium, | 136 | 132 - 143 | EXTERNAL | | | External | | | LAB | | + +-------+ + + + + + | Resulting Agency Comment | + + | [facility] | + + + +---------+ + + | Performing | Address | City/State/Zipcode | Phone Number | | Organization | | | | + +---------+ + + | EXTERNAL LAB | | | | + +---------+ + + External Lab: Urinalysis (10/13/2014 5:00 PM PST) + + + + + + | Component | Value | Ref Range | Performed | Pathologist | | | | | At | Signature | + + + + + + | UA Blood, | 10 (A) | 0 | EXTERNAL | | | External | | | LAB | | + + + + + + | UA Glucose, | Normal | | EXTERNAL | | | External | | | LAB | | + + + + + + | UA Ketones, | Negative | | EXTERNAL | | | External | | | LAB | | + + + + + + | UA Ph, | 6 | 5 - 9 | EXTERNAL | | | External | | | LAB | | + + + + + + | UA | Negative | | EXTERNAL | | | Proteins, | | | LAB | | | External | | | | | + + + + + + | UA RBC, | 0 | 0 - 4 | EXTERNAL | | | External | | | LAB | | + + + + + + | UA Specific | 1.001 (A) | 1.005 - 1.03 | EXTERNAL | | | [place], | | | LAB | | | External | | | | | + + + + + + | UA | Negative | | EXTERNAL | | | Leukocyte | | | LAB | | | Esterase, | | | | | | External | | | | | + + + + + + + + | Resulting Agency Comment | + + | [facility] | + + + +---------+ + + | Performing | Address | City/State/Zipcode | Phone Number | | Organization | | | | + +---------+ + + | EXTERNAL LAB | | | | + +---------+ + + External Lab: CBC (10/13/2014 5:00 PM PST) + +-------+ + + + | Component | Value | Ref Range | Performed | Pathologist | | | | | At | Signature | + +-------+ + + + | WBC, | 9.0 | 4.5 - 11 | EXTERNAL | | | External | | | LAB | | + +-------+ + + + | HGB, | 13.2 | 12 - 16 | EXTERNAL | | | External | | | LAB | | + +-------+ + + + | HCT, | 42.1 | 35 - 45 | EXTERNAL | | | External | | | LAB | | + +-------+ + + + | PLT, | 261 | 140 - 440 | EXTERNAL | | | External | | | LAB | | + +-------+ + + + | Neutrophils | 54.9 | 39 - 80 | EXTERNAL | | | %, | | | LAB | | | External | | | | | + +-------+ + + + | Lymphocytes | 38.1 | 24 - 44 | EXTERNAL | | | %, | | | LAB | | | External | | | | | + +-------+ + + + | Monocytes | 5.1 | 0 - 12 | EXTERNAL | | | %, External | | | LAB | | + +-------+ + + + | Eosinophils | 1.3 | 0 - 6 | EXTERNAL | | | %, | | | LAB | | | External | | | | | + +-------+ + + + | RBC, | 5.08 | 3.8 - 5.1 | EXTERNAL | | | External | | | LAB | | + +-------+ + + + | MCV, | 85 | 81 - 99 | EXTERNAL | | | External | | | LAB | | + +-------+ + + + | RDW, | 11.8 | 10.5 - 15 | EXTERNAL | | | External | | | LAB | | + +-------+ + + + + + | Resulting Agency Comment | + + | [facility] | + + + +---------+ + + | Performing | Address | City/State/Zipcode | Phone Number | | Organization | | | | + +---------+ + + | EXTERNAL LAB | | | | + +---------+ + + External Lab: eGFR (10/13/2014 5:00 PM PST) + +-------+ + + + | Component | Value | Ref Range | Performed | Pathologist | | | | | At | Signature | + +-------+ + + + | eGFR, | >60 | 60 - 99,999 | EXTERNAL | | | External | | | LAB | | + +-------+ + + + + + | Specimen | + + | Blood specimen | | (specimen) | + + + + | Resulting Agency Comment | + + | [facility] | + + + +---------+ + + | Performing | Address | City/State/Zipcode | Phone Number | | Organization | | | | + +---------+ + + | EXTERNAL LAB | | | | + +---------+ + + External Lab: Creatinine (10/13/2014 5:00 PM PST) + +-------+ + + + | Component | Value | Ref Range | Performed | Pathologist | | | | | At | Signature | + +-------+ + + + | Creatinine, | 0.82 | 0.6 - 1.35 | EXTERNAL | | | External | | | LAB | | + +-------+ + + + + + | Specimen | + + | Blood specimen | | (specimen) | + + + + | Resulting Agency Comment | + + | [facility] | + + + +---------+ + + | Performing | Address | City/State/Zipcode | Phone Number | | Organization | | | | + +---------+ + + | EXTERNAL LAB | | | | + +---------+ + + CBC with Differential (10/13/2014 5:00 PM PST) + + + + + + | Component | Value | Ref Range | Performed | Pathologist | | | | | At | Signature | + + + + + + | MCH | 26.0 (A) | 27.0 - 33.0 pg | | | + + + + + + | MCHC | 31.0 | % | | | + + + + + + | % Basophils | 0.6 | % | | | + + + + + + + + | Specimen | + + | Blood specimen | | (specimen) | + + Rule Out Myocardial (10/13/2014 5:00 PM PST) + + + + + + | Component | Value | Ref Range | Performed | Pathologist | | | | | At | Signature | + + + + + + | MYOGLOBIN | 38 | 169 ng/mL | [facility] | | | | | [facility] | | | | | [facility] | | | | | | [facility] - | | | | | | LABORATORY | | + + + + + + | CKMB, | NegativeComment: Interp | | [facility] | | | Total, | | | [facility] | | | External | | | MEDICAL | | | | | | CENTER - | | | | | | LABORATORY | | + + + + + + | CK Index | 1.5 | | [facility] | | | | | | [facility] | | | | | | MEDICAL | | | | | | CENTER - | | | | | | LABORATORY | | + + + + + + + + | Specimen | + + | Blood specimen | | (specimen) | + + + + + + + | Performing | Address | City/State/Zipcode | Phone Number | | Organization | | | | + + + + + | [facility] | [address] | [place] | | | [facility] | | [id number], [facility] | | | - LABORATORY | | | | + + + + + Comprehensive Metabolic Panel (10/13/2014 5:00 PM PST) + +-------+ + + + | Component | Value | Ref Range | Performed | Pathologist | | | | | At | Signature | + +-------+ + + + | Anion Gap | 10 | mmol/L | [facility] | | | | | | [facility] | | | | | [facility] | | | | | | [facility] - | | | | | | LABORATORY | | + +-------+ + + + | BUN/Creatin | 15.9 | | [facility] | | | ine Ratio | | | [facility] | | | | | | [facility] | | | | | | CENTER - | | | | | | LABORATORY | | + +-------+ + + + | Globulin | 5.0 | | [facility] | | | | | | [facility] | | | | | | MEDICAL | | | | | | CENTER - | | | | | | LABORATORY | | + +-------+ + + + | Albumin/Lucila | 2.5 | | [facility] | | | bulin Ratio | | | [facility] | | | | | | MEDICAL | | | | | | CENTER - | | | | | | LABORATORY | | + +-------+ + + + + + | Specimen | + + | Blood specimen | | (specimen) | + + + + + + + | Performing | Address | City/State/Zipcode | Phone Number | | Organization | | | | + + + + + | [facility] | [address] | [place], [place] | | | [facility] | | [address] | | | - LABORATORY | | | | + + + + + documented in this encounter Visit Diagnoses Not on filedocumented in this encounter"
--- OUTSIDE RECORDS SUMMARY | ~2020-06-08 | XMS | Encounter Summary ---
Demographics + + + | Address | [address] [place] [address] Rd | | | [place] [address] | + + + | Home Phone | | + + + | Preferred Language | Unknown | + + + | Marital Status | Unknown | + + + | Cheondoism Affiliation | Unknown | + + + | Race | White | + + + | Ethnic Group | Not or | + + + Author + + + | Author | [facility] | | | and [place] | + + + | Organization | [facility] | | | and [place] | + + + | Address | Unknown | + + + | Phone | Unavailable | + + + Support + + + + + | Name | Relationship | Address | Phone | + + + + + | Arthur Rosenberg | ECON | [address] | | | | | [place] | | | | | [address] | | + + + + + | Tiffanie Alexandra | ECON | Unknown | | + + + + + | Lulu Poole | ECON | Unknown | | + + + + + Care Team Providers + +------+ + | Care Banquet Attendant Name | Role | Phone | + [...] | | | | hepatitis C | PLANT INSPECTOR [address] | PERSONAL CARE ASSISTANT [address] | | | | | without | | [address] | | | | | mention of | [address] | [place] [address] | | | | | hepatic coma | [place], | [place], | | | | | Procedures | [place] [address] | [place] [address] | | | | | Office | Phone: | Phone: | | | | | Visit | [phone] | [phone] | | | | | | Fax: | Fax: | | | | | | [phone] | [phone] | +--------+--------+ + + + + Encounter Details +--------+---------+ + + + | Date | Type | Department | Care Team | Description | +--------+---------+ + + + | 12/30/ | Office | [facility] | [facility] | Hepatitis C antibody | | 2015 | Visit | GASTROENTEROLOGY | [address]ENN[address]in [address] | test positive | | | | [address] [place] | [address] | (Primary Dx) | | | | [address] [place] | [place] | | | | | [id number] | [id number] | | | | | [phone] | | | +--------+---------+ + + + [...] Final eGFR, External 10/13/2014 >60 60 - 43712 Final WBC, External 10/13/2014 9.0 4.5 - [...] 0 0 - 4 Final UA Specific [place], External 10/13/2014 1.001* 1.005 - 1.03 Final [...]
[~2020-06-08 10:26] MED LIST changes: +ESCITALOPRAM OX10 MG PO; +HYDROXYZINE HCL25 MG PO
--- OUTSIDE RECORDS SUMMARY | 2020-06-08 10:28 | XMS ---
PreManage Notification: LARISSA ENGLAND Security Mobile Home Technician Events No recent Security Events currently on file CRITERIA MET - [facility] - 2 Visits in 30 Days CARE PROVIDERS JOSE M DAWN Nurse Practitioner: 04/19/2020-Current PHONE: Unknown Kristine has no Care Guidelines for this patient. Kathia VISIT COUNT (12 MO.) 4 [facility] TOTAL 4 NOTE: Visits indicate total known visits. ED/C VISIT TRACKING (12 MO.) 06/08/2020 10:26 [facility] [place] TYPE: Emergency COMPLAINT: - CHEST PAIN 06/06/2020 16:[address] [facility] TYPE: Emergency COMPLAINT: - MEDICATION PROBLEM 04/18/2020 18:12 [facility] [place] TYPE: Emergency COMPLAINT: - MED CLEARANCE DIAGNOSES: - Other stimulant abuse, uncomplicated - Nicotine dependence, unspecified, uncomplicated 03/29/2020 16:02 [facility] [place] TYPE: Emergency COMPLAINT: - ALTERED LOC INPATIENT VISIT TRACKING (12 MO.) 03/29/2020 16:03 [facility] [place] TYPE: Observation COMPLAINT: - TOXIC ENCEPHALOPATHY DIAGNOSES: - Rhabdomyolysis - Other stimulant abuse, uncomplicated - Altered mental status, unspecified - Nonspecific elevation of levels of transaminase and lactic ac - Contact with and (suspected) exposure to other viral communic - Toxic encephalopathy - Acidosis [email or web address]
--- NOTE | 2020-06-08 18:54 | EKG ---
[facility] [address] [facility] [place] [address] Signed Sinus tachycardia Possible Left atrial enlargement Nonspecific ST abnormality Abnormal ECG When compared with ECG of 07-JUN-2020 07:54, Vent. rate has increased BY 39 BPM Confirmed by ELIZABETH HAHN MD ([id number]) on 06/08/2020 6:53:43 PM Electronically Signed By: ELIZABETH HAHN MD 06/08/20 1854 PATIENT NAME: LARISSA ENGLAND Electrocardiogram DATE OF : 84 PHYSICIAN: ELIZABETH HAHN MD REPORT #: [id number] REPORT IS CONFIDENTIAL AND NOT TO BE RELEASED WITHOUT AUTHORIZATION
== END 2020-06-08 12:55 | disposition home or self-care (01) ==
LOC: ED 10:26
DX: K21.9 Gastro-esophageal reflux disease without esophagitis (principal); F19.239 Other psychoactive substance dependence with withdrawal, unspecified; F17.200 Nicotine dependence, unspecified, uncomplicated; Z79.899 Other long term (current) drug therapy
CPT/HCPCS: 71045; 80053; 83690; 83735; 84484; 85025; 93005; 93010; 96361; 96374; 99285-25; J2060; J7030

== ENCOUNTER 2020-12-20 00:05 | Emergency (ER) | payer SELFPAY ==
[~2020-12-20] VITALS: Ht 160 cm; Wt 74.8 kg
--- OUTSIDE RECORDS SUMMARY | 2020-12-20 00:08 | XMS ---
PreManage Notification: LARISSA ENGLAND Security Supervisor Grinding Events No recent Security Events currently on file CRITERIA MET - Group Notification CARE PROVIDERS JOSE M DAWN Nurse Practitioner: 04/19/2020-Current PHONE: Unknown Kristine has no Care Guidelines for this patient. Care History Medical/Surgical 06/09/2020 [facility] # LISTED-PATIENT CONTACT NUMBER IS CONTACT # FOR PATIENT SISTER MILES REZA. LEFT A MESSAGE FOR PATIENT TO RETURN CALL. - PATIENT DOES NOT HAVE HEALTH INSURANCE -PLEASE CONTACT PEG AT EXT [phone] IF PATIENT IS SEEN IN THE ED DURING WEEKDAY OFFICE HOURS. E.D. VISIT COUNT (12 MO.) [address] [place] [address] TOTAL 5 NOTE: Visits indicate total known visits. ED/UCC VISIT TRACKING (12 MO.) 12/20/2020 00:05 [facility] [place] TYPE: Emergency COMPLAINT: - CHEST PAIN,HEADACHE 06/08/2020 10:26 [facility] [place] TYPE: Emergency COMPLAINT: - CHEST PAIN DIAGNOSES: - Other psychoactive substance dependence with withdrawal, unspecified - Other roasterman (current) drug therapy - Pleurodynia - Gastro-esophageal reflux disease without esophagitis - Nicotine dependence, unspecified, uncomplicated 06/06/2020 16:19 [facility] [place] TYPE: Emergency COMPLAINT: - MEDICATION PROBLEM DIAGNOSES: - Other jail (current) drug therapy - Poisoning by selective serotonin reuptake inhibitors, intentional self-harm, initial encounter - Other stimulant use, unspecified, uncomplicated - Poisoning by other antipsychotics and neuroleptics, intentional self-harm, initial encounter - Nicotine dependence, unspecified, uncomplicated 04/18/2020 18:12 [facility] [place] TYPE: Emergency [...] elevation of levels of transaminase and lactic acid dehydrogenase [LDH] - Contact with and (suspected) exposure to other viral communicable diseases - Toxic encephalopathy - Acidosis [email or web address]
== END 2020-12-20 01:43 | disposition home or self-care (01) ==
LOC: ED 00:05
DX: S06.9X9A Unspecified intracranial injury with loss of consciousness of unspecified duration, initial encounter (principal); R07.89 Other chest pain; F17.200 Nicotine dependence, unspecified, uncomplicated; W22.8XXA Striking against or struck by other objects, initial encounter
CPT/HCPCS: 70450; 71045; 80053; 81001; 84484; 85025; 99284-25

== ENCOUNTER 2020-12-25 21:16 | Emergency (ER) | payer OTHER ==
[~2020-12-25] VITALS: Ht 160 cm; Wt 74.8 kg
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
[2020-12-25] MEDS ORDERED: ATIVAN1 MG PO (23:48)
--- NOTE | 2020-12-26 16:33 | EKG ---
[facility] [address] [place], [place] [address] Signed Normal sinus rhythm Normal ECG When compared with ECG of 08-JUN-2020 10:32, Vent. rate has decreased BY 41 BPM Confirmed by MAURIZIO RYDER DO ([id number]) on 12/26/2020 4:33:34 PM Electronically Signed By: MAURIZIO RYDER DO 12/26/20 1633 PATIENT NAME: LARISSA ENGLAND Electrocardiogram DATE OF : 84 PHYSICIAN: MAURIZIO RYDER DO REPORT #: [id number] REPORT IS CONFIDENTIAL AND NOT TO BE RELEASED WITHOUT AUTHORIZATION
== END 2020-12-26 00:08 | disposition home or self-care (01) ==
LOC: ED 21:16
DX: S30.0XXA Contusion of lower back and pelvis, initial encounter (principal); S20.229A Contusion of unspecified back wall of thorax, initial encounter; S00.432A Contusion of left ear, initial encounter; Y08.02XA Assault by strike by baseball bat, initial encounter; F17.200 Nicotine dependence, unspecified, uncomplicated
CPT/HCPCS: 29125; 51701; 70450; 71045; 71260; 72125; 73110; 73630; 74177; 80053; 81001; 84484; 84703; 85025; 85610; 85730; 93005; 93010; 99285-25; J2060; Q9967

== ENCOUNTER 2020-12-26 16:27 | Emergency (ER) | payer OTHER ==
[~2020-12-26] VITALS: Ht 160 cm; Wt 70.3 kg
[~2020-12-26 16:27] MED LIST changes: +ATIVAN1 MG PO
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
== END 2020-12-26 17:34 | disposition home or self-care (01) ==
LOC: ED 16:27
DX: M25.532 Pain in left wrist (principal); F17.200 Nicotine dependence, unspecified, uncomplicated; Z79.899 Other long term (current) drug therapy
CPT/HCPCS: 99283

== ENCOUNTER 2021-03-10 02:15 | Emergency (ER) | payer OTHER ==
[~2021-03-10] VITALS: Ht 160 cm; Wt 63.9 kg
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
== END 2021-03-10 04:31 | disposition short-term general hospital (02) ==
LOC: ED 02:15
DX: T14.8XXA Other injury of unspecified body region, initial encounter (principal); R45.1 Restlessness and agitation; F17.200 Nicotine dependence, unspecified, uncomplicated; Z72.89 Other problems related to lifestyle; Y04.2XXA Assault by strike against or bumped into by another person, initial encounter
CPT/HCPCS: 80053; 85025; 96372; 99285; A9270; G0480; J0696

== ENCOUNTER 2022-04-30 15:44 | Emergency (ER) | payer OTHER ==
[~2022-04-30] VITALS: Ht 160 cm; Wt 84.8 kg
[2022-04-30] MEDS ORDERED: HYDROXYZINE HCL50 MG PO (16:06)
--- OUTSIDE RECORDS SUMMARY | 2022-04-30 16:14 | XMS ---
PreManage Notification: LARISSA ENGLAND Security Block Sawyer Events No recent Security Events currently on file CRITERIA MET - Group Notification CARE PROVIDERS JOSE M DAWN Nurse Practitioner: Family 04/19/2020-Current PHONE: Unknown Rachael Diaz Community Health Worker 03/11/2021-Current PHONE: [phone] Kristine has no Care Guidelines for this patient. Care History Medical/Surgical 06/09/2020 [facility] CALLED # LISTED-PATIENT CONTACT NUMBER IS CONTACT # FOR PATIENT SISTER MILES REZA. LEFT A MESSAGE FOR PATIENT TO RETURN CALL. - PATIENT DOES NOT HAVE HEALTH INSURANCE -PLEASE CONTACT PEG AT EXT [phone] IF PATIENT IS SEEN IN THE ED DURING WEEKDAY OFFICE HOURS. E.D. VISIT COUNT (12 MO.) 1 [facility] 1 [facility] TOTAL 2 NOTE: Visits indicate total known visits. ED/UCC VISIT TRACKING (12 MO.) 04/30/2022 15:45 [facility] [place] [facility] [place] TYPE: Emergency COMPLAINT: - [facility] DIAGNOSES: - Other stimulant use, unspecified with intoxication, uncomplicated - Psychiatric Evaluation INPATIENT VISIT TRACKING (12 MO.) No inpatient visits to display in this time frame [email or web address]
== END 2022-04-30 18:10 | disposition home or self-care (01) ==
LOC: ED 15:44
DX: S50.12XA Contusion of left forearm, initial encounter (principal); S50.11XA Contusion of right forearm, initial encounter; S30.1XXA Contusion of abdominal wall, initial encounter; S30.0XXA Contusion of lower back and pelvis, initial encounter; S20.02XA Contusion of left breast, initial encounter; S80.02XA Contusion of left knee, initial encounter; S80.01XA Contusion of right knee, initial encounter; Y04.8XXA Assault by other bodily force, initial encounter
CPT/HCPCS: 84703; 99284

== ENCOUNTER 2024-01-22 13:27 | Emergency (ER) | payer OTHER ==
[~2024-01-22] VITALS: Ht 160 cm; Wt 82.0 kg
[~2024-01-22 13:27] MED LIST changes: +HYDROXYZINE HCL50 MG PO
[2024-01-22 13:49] LABS: BASOPHILS 0.3 % (0-2); EOSINOPHILS 0.9 % (0-6); HEMATOCRIT 40.7 % (35.0-50.0); HEMOGLOBIN 13.4 g/dL (12.0-18.0); LYMPHOCYTES 28.6 % (24-44); MCH 26.8 (27-36); MCV 81.2 fl (81-99); MONOCYTES 5.9 % (0-12); NEUTROPHILS 64.3 % (39-80); PLATELET COUNT 336 K/uL (140-440); RBC 5.01 M/ul (4.3-5.7)
[2024-01-22 13:59] LABS: BILIRUBIN, URINE POSITIVE (negative); BLOOD/HGB, URINE SMALL (Negative); KETONE, URINE TRACE (Negative); LEUK ESTERASE, URINE NEGATIVE (negative); NITRITE, URINE NEGATIVE (negative); PH, URINE 5.5 (5-7)
[2024-01-22 14:06] LABS: CASTS, URINE HYALINE 2+ \\lpf; EPITHELIAL CELLS, URINE SQUAMOUS 1+ /lpf (0-1+); REFLEX CULTURE, URINE No (No)
[2024-01-22 14:18] LABS: ACETAMINOPHEN 0 ug/mL (10-30); ALBUMIN 4.1 g/dL (3.4-5.0); ALBUMIN/GLOBULIN RATIO 0.98 (1.1-2.4); ALCOHOL, MEDICAL 38 ng/dL (<3); ALKALINE PHOSPHATASE 81 U/L (46-116); ALT (SGPT) 47 U/L (14-59); ANION GAP 18.3 (7-21); AST (SGOT) 31 U/L (15-37); BILIRUBIN, TOTAL 0.3 ng/dL (0.2-1.0); CALCIUM 9.1 mg/dL (8.5-10.1); CARBON DIOXIDE 22 mmol/L (21-32); CHLORIDE 103 mmol/L (98-107); CREATININE, SERUM 0.86 mg/dL (0.55-1.02); GLOMERULAR FILTRATION RATE,EST 87 mL/min (>60); POTASSIUM 3.3 mmol/L (3.5-5.1); PROTEIN, TOTAL 8.3 g/dL (6.4-8.2); SALICYLATE 3.3 mg/dL (2.8-20.0); TSH, 3RD GENERATION 1.695 uIU/mL (0.358-3.740); UREA NITROGEN 8 mg/dL (7-18)
[2024-01-22 14:22] LABS: AMPHETAMINES, URINE POSITIVE (NEGATIVE); BARBITURATES, URINE NEGATIVE (NEGATIVE); BENZODIAZEPINE, URINE NEGATIVE (NEGATIVE); BUPRENORPHINE, URINE NEGATIVE (NEGATIVE); CANNABINOID, URINE POSITIVE (NEGATIVE); COCAINE, URINE NEGATIVE (NEGATIVE); ECSTASY, URINE POSITIVE (NEGATIVE); FENTANYL, URINE NEGATIVE (NEGATIVE); METHADONE, URINE NEGATIVE (NEGATIVE); OPIATES, URINE NEGATIVE (NEGATIVE); OXYCODONE, URINE NEGATIVE (NEGATIVE); PHENCYCLIDINE, URINE NEGATIVE (NEGATIVE)
[2024-01-22 15:46] VITALS: BP 120/88
== END 2024-01-22 15:47 | disposition other institution, planned readmission (95) ==
LOC: ED 13:27
PROVIDERS: Emergency Medicine
DX: Z02.89 Encounter for other administrative examinations (principal); S50.01XA Contusion of right elbow, initial encounter; F31.9 Bipolar disorder, unspecified; F20.9 Schizophrenia, unspecified; F41.9 Anxiety disorder, unspecified; F17.200 Nicotine dependence, unspecified, uncomplicated; W21.11XA Struck by baseball bat, initial encounter; Z79.899 Other long term (current) drug therapy
CPT/HCPCS: 36415; 73080; 80053; 80307; 81001; 84443; 84703; 85025; 99285-25; G0480

== ENCOUNTER 2024-11-24 13:29 | Emergency (ER) | payer OTHER ==
[~2024-11-24] VITALS: Ht 160 cm; Wt 87.1 kg
[2024-11-24] MEDS ORDERED: ZYPREXA2.5 MG PO (13:53)
[2024-11-24 14:17] LABS: BASOPHILS 0.8 % (0-2); EOSINOPHILS 0.7 % (0-6); HEMATOCRIT 39.9 % (35.0-50.0); HEMOGLOBIN 13.2 g/dL (12.0-18.0); LYMPHOCYTES 33.5 % (24-44); MCH 27.3 (27-36); MCHC 33.2 g/dl (30-36); MCV 82.2 fl (81-99); MONOCYTES 6.5 % (0-12); NEUTROPHILS 58.5 % (39-80); PLATELET COUNT 337 K/uL (140-440); RBC 4.85 M/ul (4.3-5.7)
[2024-11-24 14:43] LABS: ACETAMINOPHEN 0 ug/mL (10-30); ALBUMIN 3.8 g/dL (3.4-5.0); ALBUMIN/GLOBULIN RATIO 1.12 (1.1-2.4); ALCOHOL, MEDICAL <3 ng/dL (<3); ALKALINE PHOSPHATASE 74 U/L (46-116); ALT (SGPT) 52 U/L (14-59); ANION GAP 15.7 (7-21); AST (SGOT) 30 U/L (15-37); BILIRUBIN, TOTAL 0.2 mg/dL (0.2-1.0); BUN/CREATININE RATIO 14.45 (6.0-28.6); CALCIUM 9.4 mg/dL (8.5-10.1); CARBON DIOXIDE 24 mmol/L (21-32); CHLORIDE 103 mmol/L (98-107); CREATININE, SERUM 0.83 mg/dL (0.55-1.02); GLOMERULAR FILTRATION RATE,EST 90 mL/min (>60); POTASSIUM 3.7 mmol/L (3.5-5.1); PROTEIN, TOTAL 7.2 g/dL (6.4-8.2); SALICYLATE 5.4 mg/dL (2.8-20.0); TSH, 3RD GENERATION 0.599 uIU/mL (0.358-3.740); UREA NITROGEN 12 mg/dL (7-18)
[2024-11-24] MEDS ORDERED: hydrOXYzine pamoate 25 MG CAP PO PRN (17:30)
[2024-11-24] MEDS ORDERED: OLANZapine 10 MG TAB PO ONE (17:30)
[2024-11-24 17:50] LABS: BILIRUBIN, URINE NEGATIVE (negative); BLOOD/HGB, URINE NEGATIVE (Negative); KETONE, URINE NEGATIVE (Negative); LEUK ESTERASE, URINE NEGATIVE (negative); NITRITE, URINE NEGATIVE (negative)
[2024-11-24 18:05] LABS: AMPHETAMINES, URINE POSITIVE (NEGATIVE); BARBITURATES, URINE NEGATIVE (NEGATIVE); BENZODIAZEPINE, URINE NEGATIVE (NEGATIVE); BUPRENORPHINE, URINE NEGATIVE (NEGATIVE); CANNABINOID, URINE POSITIVE (NEGATIVE); COCAINE, URINE NEGATIVE (NEGATIVE); ECSTASY, URINE POSITIVE (NEGATIVE); FENTANYL, URINE NEGATIVE (NEGATIVE); METHADONE, URINE NEGATIVE (NEGATIVE); OPIATES, URINE NEGATIVE (NEGATIVE); OXYCODONE, URINE NEGATIVE (NEGATIVE); PHENCYCLIDINE, URINE NEGATIVE (NEGATIVE)
[2024-11-24] MEDS ORDERED: OLANZapine 10 MG TAB PO SCH (21:00)
[2024-11-25 15:35] VITALS: BP 118/74
--- NOTE | 2024-11-26 22:59 | EKG ---
[facility] [address] [place] [address] Signed Sinus rhythm with marked sinus arrhythmia Otherwise normal ECG When compared with ECG of 25-DEC-2020 21:22, Sinus arrhythmia is now present Confirmed by Aiyana Hanson MD () on 11/26/2024 10:59:32 PM Electronically Signed By: AIYANA HANSON MD 11/26/24 2259 PATIENT NAME: LARISSA ENGLAND Electrocardiogram DATE OF : 84 PHYSICIAN: AIYANA HANSON MD REPORT #: [id number] REPORT IS CONFIDENTIAL AND NOT TO BE RELEASED WITHOUT AUTHORIZATION
== END 2024-11-25 15:37 ==
LOC: ED 13:29
PROVIDERS: Emergency Medicine
DX: R45.851 Suicidal ideations (principal)
CPT/HCPCS: 36415; 80053; 80307; 81003; 84443; 84703; 85025; 93005; 93010; 99285; A9270; G0480

== ENCOUNTER 2025-05-09 15:46 | Emergency (ER) | payer OTHER ==
[~2025-05-09] VITALS: Ht 170.2 cm; Wt 76.5 kg
[~2025-05-09 15:46] MED LIST changes: +ZYPREXA2.5 MG PO
[2025-05-09] MEDS ORDERED: AMOX TR-K CLV1 EAC1 PO (16:22)
[2025-05-09] MEDS ORDERED: HYDROCODON-ACE1 EA10 PO (16:22)
[2025-05-09] MEDS ORDERED: AMOXICILLIN/CLAVULANATE K 875 MG TAB PO ONE (16:30)
[2025-05-09 16:35] VITALS: BP 109/81
== END 2025-05-09 16:35 | disposition home or self-care (01) ==
LOC: ED 15:46
DX: R22.0 Localized swelling, mass and lump, head (principal); F17.200 Nicotine dependence, unspecified, uncomplicated; Z98.890 Other specified postprocedural states
CPT/HCPCS: 99283

== ENCOUNTER 2025-06-03 14:31 | Emergency (ER) | payer OTHER ==
[~2025-06-03] VITALS: Ht 170.2 cm; Wt 73.0 kg
[~2025-06-03 14:31] MED LIST changes: +AMOX TR-K CLV1 EAC1 PO; +HYDROCODON-ACE1 EA10 PO
[2025-06-03] MEDS ORDERED: IBUPROFEN 600 MG TAB PO ONE (15:45)
[2025-06-03] MEDS ORDERED: OXYCODONE/APAP 5/325 TAB PO ONE (15:45)
[2025-06-03] MEDS ORDERED: DAPTOmycin 500 MG/10 ML VIAL IV ONE (15:45)
[2025-06-03 16:05] LABS: BASOPHILS 0.5 % (0.1-1.2); EOSINOPHILS 0.6 % (0.7-5.8); LYMPHOCYTES 33.7 % (19.3-51.7); MCH 27.4 PG (25.6-32.2); MCHC 32.2 g/dL (32.2-35.5); MCV 85.2 fL (79.4-94.8); MONOCYTES 5.2 % (4.7-12.5); NEUTROPHILS 59.7 % (34.0-71.1); RBC 5.33 M/uL (3.93-5.22)
[2025-06-03 16:23] LABS: ALT (SGPT) 31.0 U/L (14-59); AST (SGOT) 18.0 U/L (15-37); GLOMERULAR FILTRATION RATE,EST 103.0 mL/min (>60); PROTEIN, TOTAL 8.0 g/dL (6.4-8.2); UREA NITROGEN 6.0 mg/dL (7-18)
[2025-06-03 17:10] LABS: ERYTHROCYTE SEDIMENTATION RATE 5
[2025-06-03] MEDS ORDERED: AMOX TR-K CLV1 EAC1 PO (18:13)
[2025-06-03] MEDS ORDERED: AMOXICILLIN/CLAVULANATE K 875 MG HOME.PACK PO ONE (18:15)
[2025-06-03 18:35] VITALS: BP 107/80
== END 2025-06-03 18:36 | disposition home or self-care (01) ==
LOC: ED 14:31
PROVIDERS: Emergency Medicine
DX: L03.011 Cellulitis of right finger (principal); S62.636A Displaced fracture of distal phalanx of right little finger, initial encounter for closed fracture; S61.210A Laceration without foreign body of right index finger without damage to nail, initial encounter; S61.411A Laceration without foreign body of right hand, initial encounter; F17.200 Nicotine dependence, unspecified, uncomplicated; W26.0XXA Contact with knife, initial encounter
CPT/HCPCS: 36415; 73130; 80053; 85025; 85651; 86140; 96365; 96375; 99283-25; A9270; J0696; J0878